=== PATIENT | female | born 1940 | race Caucasian/White ===

== ENCOUNTER 2019-12-21 08:55 | Outpatient (CLI) | payer MEDICARE, BC | END 2019-12-21 23:59 | disposition home or self-care (01) | LOC: LAB.R 08:55 | PROVIDERS: ATTEND Physician Assistant Medical | DX: N39.0 Urinary tract infection, site not specified (principal) | CPT/HCPCS: 87086 ==

== ENCOUNTER 2020-01-29 08:15 | Outpatient (CLI) | payer MEDICARE, BC ==
[2020-01-29 09:33] LABS: CALCIUM 9.7 mg/dL (8.5-10.3); CREATININE 0.8 mg/dL (0.4-1.0)
== END 2020-01-29 08:16 | disposition home or self-care (01) ==
LOC: RT 08:15
PROVIDERS: ATTEND Orthopaedic Surgery
DX: Z01.818 Encounter for other preprocedural examination (principal); G56.01 Carpal tunnel syndrome, right upper limb; Z20.828 Contact with and (suspected) exposure to other viral communicable diseases
CPT/HCPCS: 36415; 80048; 93005; U0004

== ENCOUNTER 2020-03-10 11:58 | Outpatient (CLI) | payer MEDICARE, BC | END 2020-03-10 11:59 | disposition home or self-care (01) | LOC: COV 11:58 | PROVIDERS: ATTEND Family Medicine | DX: Z01.812 Encounter for preprocedural laboratory examination (principal); Z20.828 Contact with and (suspected) exposure to other viral communicable diseases ==

== ENCOUNTER 2020-03-21 10:40 | Outpatient (CLI) | payer MEDICARE, BC | END 2020-03-21 10:41 | disposition home or self-care (01) | LOC: LAB.R 10:40 | PROVIDERS: ATTEND Physician Assistant Medical | DX: N39.0 Urinary tract infection, site not specified (principal) | CPT/HCPCS: 87086; 87181 ==

== ENCOUNTER 2020-04-05 08:00 | Outpatient (CLI) | payer MEDICARE, BC | END 2020-04-05 23:59 | disposition home or self-care (01) | LOC: LAB.R 08:00 | PROVIDERS: ATTEND Physician Assistant | DX: N39.0 Urinary tract infection, site not specified (principal) | CPT/HCPCS: 87086; 87181 ==